=== PATIENT | male | born 1985 | race Caucasian/White ===

== ENCOUNTER 2016-09-07 15:33 | Emergency (ER) | payer SELFPAY ==
--- NOTE | 2016-09-07 18:54 | ED CLINICAL REPORT ---
Clinical Report - Physicians/Mid Levels [facility] [address] [place] [address] 09/07/2016 15:35 Patient: RACHELL IBRAHIM Time Seen: 18:08. Arrived- By private vehicle. HISTORY OF PRESENT ILLNESS Chief Complaint: TENDER AREA. This started about 5 days ago. Much worse today and is still present (worse). It was gradual in onset. It is described as painful. It has been located in the left axilla. Similar symptoms previously: None. REVIEW OF SYSTEMS No fever, chills, cough, difficulty breathing or chest pain. PAST HISTORY PCP: None Ops: None. SOCIAL HISTORY Alcohol use; consumes beer occasionally. ADDITIONAL NOTES The nursing notes have been reviewed. PHYSICAL EXAM Vital Signs: 09/07/2016 19:04 BP: 148/70. HR: 65. RR: 20. O2 saturation: 97%. Temp: 98.1 F. Pain level now: 02/13. 09/07/2016 17:59 BP: 140/73. HR: 76. RR: 12. O2 saturation: 100%. 09/07/2016 17:57 BP: 145/70. HR: 88. RR: 12. O2 saturation: 100%. 09/07/2016 16:01 BP: 155/102. HR: 72. RR: 18. O2 saturation: 99%. Temp: 98.2 F. Appearance: Alert. Patient in mild distress. Respiratory: No respiratory distress. Breath sounds normal. Abdomen: Nontender. Skin: Single medium abscess with fluctuance and pointing to left axilla. PROGRESS AND PROCEDURES Incision & Drainage of Abscess: The abscess is located in the left axilla. The risks of the procedure, benefits and alternatives were explained. Consent was obtained. Local anesthesia provided using 1% lidocaine with epi. Skin cleansed with Betadine. The abscess was incised with a #11 surgical blade. A moderate amount of pus was drained. Cavity was irrigated with saline and packed with gauze. A dressing was applied. Estimated blood loss: 0.2 mL. Disposition: Discharged. Condition: stable. CLINICAL IMPRESSION Single deep abscess to the left axilla. INSTRUCTIONS (REPACK WOUND IN 2 DAYS MAY RETURN TO ED FOR WOUND CARE IF NO PCP). Prescription Medications: Hydrocodone/APAP take 1-2 orally every 4 hours as needed for pain. Dispense fifteen (15). No refill. Bactrim DS 800 mg / 160 mg: Take 1 tablet orally every 12 hours for 7 days. Dispense fourteen (14). No refills. Substitution is permissible. Understanding of the discharge instructions verbalized by patient. Follow-up with: Zaida Tabor MD, [facility], , [facility], [address] [place] [address] Follow up in two days for packing removal. (Electronically signed by Arnaldo Samaniego MD 09/08/2016 19:37)
--- NOTE | 2016-09-07 18:54 | ED NURSING NOTES ---
Clinical Report - Nurses [facility] [address] [place] [address] 09/07/2016 15:35 Patient: RACHELL IBRAHIM TRIAGE Triage time 16:Sep 07 2016. Acuity: LEVEL 4. Chief Complaint: BOIL and TENDER AREA. Alert. No acute distress. --16:05 Pily Larson R.N. 16:01 09/07/16. BP: 155/102. HR: 72. RR: 18. O2 saturation: 99%. Temp: 98.2 F. --16:05 Pily Larson R.N. 16:05 09/07/16. Pain level now 10/10. --16:05 Pily Larson R.N. Acuity: LEVEL 4. --17:56 Dayron Wright R.N. Weight: 136 kg stated. Height/Length: 74 inches Per Patient. BMI: 38.5. --16:00 Pily Larson R.N. Medications None. --16:03 Pily Larson R.N. Medication/allergy information source: the patient. --16:05 Pily Larson R.N. Allergies None. --16:03 Pily Larson R.N. History Arrived by private vehicle. Historian: patient. Accompanied by family and spouse. Primary physician (none). ( 5-6 days ago, pimple in the left armpit, popped and now infected, red and hot. Big bump inside the skin.). Reported as located in the left axilla. Onset. (5 days ago). 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 PAST MEDICAL HX: Immunizations: status is unknown. SURGERY HX: No history of previous surgery. SOCIAL HX: Smoker- current status unknown (cigarette). Occasional alcohol use. History of drug use: marijuana. FALL RISK ASSESSMENT: Fall risk assessment completed. No fall risk identified. NUTRITIONAL RISK ASSESSMENT: The nutritional risk assessment revealed no deficiencies. FUNCTIONAL ASSESSMENT: Functional assessment: no impairments noted. LEARNING NEEDS ASSESSMENT: The learning needs assessment revealed no barriers. SKIN INTEGRITY ASSESSMENT: Skin integrity risk assessment completed. No skin integrity risk identified. --16:05 Pily Larson R.N. Interventions ID band on patient. To room. --16:05 Pily Larson R.N. PHYSICAL ASSESSMENT 17:56 09/07/16. GENERAL / NEURO / PSYCH: Alert. Oriented X 4. RESPIRATORY: Respirations not labored. CVS: Capillary refill less than 2 seconds. SKIN: Skin is warm and dry. Tenderness present in the left axilla. --17:56 Dayron Wright R.N. NURSING PROGRESS NOTES Patient ready for evaluation- ED physician notified. --16:05 Pily Larson R.N. 17:56 09/07/16. The plan of care for this patient has been created. Patient gowned. Head of bed elevated. Reassurance given. Two patient identifiers checked. Call light placed in reach. Side rails up x 2. Bed placed in lowest position. Brakes of bed on. Brakes of chair on. --17:56 Dayron Wright R.N. 17:57 09/07/16. --17:57 Dayron Wright R.N. 17:57 09/07/16. BP: 145/70. HR: 88. RR: 12. O2 saturation: 100% on room air. --17:57 Dayron Wright R.N. 17:59 09/07/16. --17:59 Dayron Wright R.N. 17:59 09/07/16. BP: 140/73. HR: 76. RR: 12. O2 saturation: 100% on room air. --17:59 Dayron Wright R.N. 18:52 09/07/2016 Bactrim DS (Sulfamethoxazole-TMP DS) PO 1 tab given. Allergies verified and confirmed 5 rights. --18:52 Dayron Wright R.N. 18:53 09/07/16. ( I and D completed by ). --18:53 Dayron Wright R.N. 18:58 09/07/2016 Percocet (Oxycodone-Acetaminophen) PO 5/325 mg Tablets 1 tab given. Allergies verified, confirmed 5 rights and sedative warning given to the patient. --19:03 Alicia Meyer Applied bulky dressing consisting of 4x4 gauze. Secured with rosamaria bandage. --19:07 Anatoly Orozco. DISPOSITION / DISCHARGE 19:04 09/07/16. Condition at departure: stable. No learning barriers present. Discharge instructions provided and reviewed with the patient and spouse. Reviewed medication(s) side effects, precautions, dosing and course information. Prescription(s) given to the patient. Reviewed wound care and skin care instructions. Patient and spouse verbalized understanding. Written instructions provided in Moldovan. The patient was discharged by the physician. He was discharged home and accompanied by spouse. He left the Emergency Department ambulatory and via private vehicle. Spouse driving. --19:05 Alicia Meyer 19:04 09/07/16. BP: 148/70. HR: 65. RR: 20. O2 saturation: 97% on room air. Temp: 98.1 F (oral). Pain level now: 02/13. --19:05 Alicia Meyer. Locked/Released at 09/08/2016 2:16 by Alicia Meyer,
--- NOTE | 2016-09-07 18:54 | ED ORDER SUMMARY ---
..... Patient: RACHELL IBRAHIM OrderSheet [facility] VisitID: [id number] [place] [address] 31y, M Registration Date/Time: 09/07/2016 ORDER SHEET Weight: 136.0 kg (stated) Allergies: None GENERAL ORDERS: MEDICATION ORDERS: Bactrim DS PO (Tablet 800-160 mg) 1 tab (NOW) (18:49 09/07/2016 Ej HURT) (Ack 18:51 JBoardley R.N.) (18:52 JBoardley R.N.) Percocet PO 1 tab (NOW) (18:55 09/07/2016 Ej HURT) (Ack 18:55 HSoule) (19:03 HSoule) IV FLUIDS: ORDER SHEET NOTES: [Electronically signed by Alicia Meyer (02:16 09/08/2016)] [Electronically signed by Arnaldo Samaniego MD (19:37 09/08/2016)] [Electronically locked/signed by Alicia Meyer (02:16 09/08/2016)]
--- NOTE | 2016-09-07 18:54 | ED CLINICAL REPORT ---
Clinical Report - Physicians/Mid Levels [facility] [address] [place] [address] 09/07/2016 15:35 Patient: RACHELL IBRAHIM Time Seen: 18:08. Arrived- By private vehicle. HISTORY OF PRESENT ILLNESS Chief Complaint: TENDER AREA. This started about 5 days ago. Much worse today and is still present (worse). It was gradual in onset. It is described as painful. It has been located in the left axilla. Similar symptoms previously: None. REVIEW OF SYSTEMS No fever, chills, cough, difficulty breathing or chest pain. PAST HISTORY PCP: None Ops: None. SOCIAL HISTORY Alcohol use; consumes beer occasionally. ADDITIONAL NOTES The nursing notes have been reviewed. PHYSICAL EXAM Vital Signs: 09/07/2016 19:04 BP: 148/70. HR: 65. RR: 20. O2 saturation: 97%. Temp: 98.1 F. Pain level now: 02/13. 09/07/2016 17:59 BP: 140/73. HR: 76. RR: 12. O2 saturation: 100%. 09/07/2016 17:57 BP: 145/70. HR: 88. RR: 12. O2 saturation: 100%. 09/07/2016 16:01 BP: 155/102. HR: 72. RR: 18. O2 saturation: 99%. Temp: 98.2 F. Appearance: Alert. Patient in mild distress. Respiratory: No respiratory distress. Breath sounds normal. Abdomen: Nontender. Skin: Single medium abscess with fluctuance and pointing to left axilla. PROGRESS AND PROCEDURES Incision & Drainage of Abscess: The abscess is located in the left axilla. The risks of the procedure, benefits and alternatives were explained. Consent was obtained. Local anesthesia provided using 1% lidocaine with epi. Skin cleansed with Betadine. The abscess was incised with a #11 surgical blade. A moderate amount of pus was drained. Cavity was irrigated with saline and packed with gauze. A dressing was applied. Estimated blood loss: 0.2 mL. Disposition: Discharged. Condition: stable. CLINICAL IMPRESSION Single deep abscess to the left axilla. INSTRUCTIONS (REPACK WOUND IN 2 DAYS MAY RETURN TO ED FOR WOUND CARE IF NO PCP). Prescription Medications: Hydrocodone/APAP take 1-2 orally every 4 hours as needed for pain. Dispense fifteen (15). No refill. Bactrim DS 800 mg / 160 mg: Take 1 tablet orally every 12 hours for 7 days. Dispense fourteen (14). No refills. Substitution is permissible. Understanding of the discharge instructions verbalized by patient. Follow-up with: Zaida Tabor MD, [facility], , [facility], [address] [place] [address] Follow up in two days for packing removal. (Electronically signed by Arnaldo Samaniego MD 09/08/2016 19:37)
--- NOTE | 2016-09-07 18:54 | ED ORDER SUMMARY ---
..... Patient: RACHELL IBRAHIM OrderSheet [facility] VisitID: [id number] [place] [address] 31y, M Registration Date/Time: 09/07/2016 ORDER SHEET Weight: 136.0 kg (stated) Allergies: None GENERAL ORDERS: MEDICATION ORDERS: Bactrim DS PO (Tablet 800-160 mg) 1 tab (NOW) (18:49 09/07/2016 Ej HURT) (Ack 18:51 JBoardley R.N.) (18:52 JBoardley R.N.) Percocet PO 1 tab (NOW) (18:55 09/07/2016 Ej HURT) (Ack 18:55 HSoule) (19:03 HSoule) IV FLUIDS: ORDER SHEET NOTES: [Electronically signed by Alicia Meyer (02:16 09/08/2016)] [Electronically signed by Arnaldo Samaniego MD (19:37 09/08/2016)] [Electronically locked/signed by Alicia Meyer (02:16 09/08/2016)]
--- NOTE | 2016-09-07 18:54 | ED NURSING NOTES ---
Clinical Report - Nurses [facility] [address] [place] [address] 09/07/2016 15:35 Patient: RACHELL IBRAHIM TRIAGE Triage time 16:Sep 07 2016. Acuity: LEVEL 4. Chief Complaint: BOIL and TENDER AREA. Alert. No acute distress. --16:05 Pily Larson R.N. 16:01 09/07/16. BP: 155/102. HR: 72. RR: 18. O2 saturation: 99%. Temp: 98.2 F. --16:05 Pily Larson R.N. 16:05 09/07/16. Pain level now 10/10. --16:05 Pily Larson R.N. Acuity: LEVEL 4. --17:56 Dayron Wright R.N. Weight: 136 kg stated. Height/Length: 74 inches Per Patient. BMI: 38.5. --16:00 Pily Larson R.N. Medications None. --16:03 Pily Larson R.N. Medication/allergy information source: the patient. --16:05 Pily Larson R.N. Allergies None. --16:03 Pily Larson R.N. History Arrived by private vehicle. Historian: patient. Accompanied by family and spouse. Primary physician (none). ( 5-6 days ago, pimple in the left armpit, popped and now infected, red and hot. Big bump inside the skin.). Reported as located in the left axilla. Onset. (5 days ago). 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 PAST MEDICAL HX: Immunizations: status is unknown. SURGERY HX: No history of previous surgery. SOCIAL HX: Smoker- current status unknown (cigarette). Occasional alcohol use. History of drug use: marijuana. FALL RISK ASSESSMENT: Fall risk assessment completed. No fall risk identified. NUTRITIONAL RISK ASSESSMENT: The nutritional risk assessment revealed no deficiencies. FUNCTIONAL ASSESSMENT: Functional assessment: no impairments noted. LEARNING NEEDS ASSESSMENT: The learning needs assessment revealed no barriers. SKIN INTEGRITY ASSESSMENT: Skin integrity risk assessment completed. No skin integrity risk identified. --16:05 Pily Larson R.N. Interventions ID band on patient. To room. --16:05 Pily Larson R.N. PHYSICAL ASSESSMENT 17:56 09/07/16. GENERAL / NEURO / PSYCH: Alert. Oriented X 4. RESPIRATORY: Respirations not labored. CVS: Capillary refill less than 2 seconds. SKIN: Skin is warm and dry. Tenderness present in the left axilla. --17:56 Dayron Wright R.N. NURSING PROGRESS NOTES Patient ready for evaluation- ED physician notified. --16:05 Pily Larson R.N. 17:56 09/07/16. The plan of care for this patient has been created. Patient gowned. Head of bed elevated. Reassurance given. Two patient identifiers checked. Call light placed in reach. Side rails up x 2. Bed placed in lowest position. Brakes of bed on. Brakes of chair on. --17:56 Dayron Wright R.N. 17:57 09/07/16. --17:57 Dayron Wright R.N. 17:57 09/07/16. BP: 145/70. HR: 88. RR: 12. O2 saturation: 100% on room air. --17:57 Dayron Wright R.N. 17:59 09/07/16. --17:59 Dayron Wright R.N. 17:59 09/07/16. BP: 140/73. HR: 76. RR: 12. O2 saturation: 100% on room air. --17:59 Dayron Wright R.N. 18:52 09/07/2016 Bactrim DS (Sulfamethoxazole-TMP DS) PO 1 tab given. Allergies verified and confirmed 5 rights. --18:52 Dayron Wright R.N. 18:53 09/07/16. ( I and D completed by ). --18:53 Dayron Wright R.N. 18:58 09/07/2016 Percocet (Oxycodone-Acetaminophen) PO 5/325 mg Tablets 1 tab given. Allergies verified, confirmed 5 rights and sedative warning given to the patient. --19:03 Alicia Meyer Applied bulky dressing consisting of 4x4 gauze. Secured with rosamaria bandage. --19:07 Anatoly Orozco. DISPOSITION / DISCHARGE 19:04 09/07/16. Condition at departure: stable. No learning barriers present. Discharge instructions provided and reviewed with the patient and spouse. Reviewed medication(s) side effects, precautions, dosing and course information. Prescription(s) given to the patient. Reviewed wound care and skin care instructions. Patient and spouse verbalized understanding. Written instructions provided in Turkish. The patient was discharged by the physician. He was discharged home and accompanied by spouse. He left the Emergency Department ambulatory and via private vehicle. Spouse driving. --19:05 Alicia Meyer 19:04 09/07/16. BP: 148/70. HR: 65. RR: 20. O2 saturation: 97% on room air. Temp: 98.1 F (oral). Pain level now: 02/13. --19:05 Alicia Meyer. Locked/Released at 09/08/2016 2:16 by Alicia Meyer,
--- NOTE | 2016-09-08 19:37 | ED MAR SUMMARY ---
..... Medication Administration Record [facility] [address] [place] [address] Patient: RACHELL IBRAHIM Visit ID: [id number] 31y, M Weight: 136.0 kg Height/Length: 74 in BMI: 38.5 ALLERGIES: None Given 18:52 09/07/2016 Dayron Wright R.N. Medication Administered: BACTRIM DS [PO] (SULFAMETHOXAZOLE-TMP DS), Dose: 1 tab PO. Medication Ordered: Bactrim DS PO (Tablet 800-160 mg) 1 tab (NOW). Given 18:58 09/07/2016 Alicia Meyer, Medication Administered: PERCOCET [PO] (OXYCODONE-ACETAMINOPHEN), Dose: 1 tab 5/325 mg Tablets PO. Medication Ordered: Percocet PO 1 tab (NOW).
--- NOTE | 2016-09-08 19:37 | ED DISCHARGE INSTRUCTIONS ---
Patient: RACHELL IBRAHIM General Instructions [facility] VisitID: [id number] [place] [address] 31y, M Registration Date/Time: 09/07/2016 Single deep abscess to the left axilla. INSTRUCTIONS (REPACK WOUND IN 2 DAYS MAY RETURN TO ED FOR WOUND CARE IF NO PCP). Prescription Medications: Hydrocodone/APAP take 1-2 orally every 4 hours as needed for pain. Dispense fifteen (15). No refill. Bactrim DS 800 mg / 160 mg: Take 1 tablet orally every 12 hours for 7 days. Dispense fourteen (14). No refills. Substitution is permissible. Understanding of the discharge instructions verbalized by patient. Follow-up with: Zaida Tabor MD, [facility], , [facility], [address] [place] [address] Follow up in two days for packing removal. ADDITIONAL INFORMATION Abscess [Incision & Drainage] An abscess (sometimes called a boil) occurs when bacteria get trapped under the skin and begin to grow. Pus forms inside the abscess as the body responds to the bacteria. An abscess can occur with an insect bite, ingrown hair, blocked oil gland, pimple, cyst, or puncture wound. Treatment of your abscess has required an incision to drain the pus. If the abscess pocket was large, a gauze packing may have been inserted. This will need to be removed and possibly replaced on your next visit. Antibiotics are not required in the treatment of a simple abscess, unless the infection is spreading into the skin around the wound (known as cellulitis). Healing of the wound will take about one to two weeks depending on the size of the abscess. Healthy tissue will grow from the bottom and sides of the opening until it seals over. Home Care: The wound may drain for the first two days. Cover the wound with a clean dry dressing. If the dressing becomes soaked with blood or pus, change it. If a gauze packing was placed inside the abscess cavity, you may be advised to remove it yourself. You may do this in the shower. Once the packing is removed, you should wash the area in the shower or bath 3 to 4 times a day, until the skin opening has closed. If you were prescribed antibiotics, take them as directed until they are all gone. You may use acetaminophen (Tylenol) or ibuprofen (Motrin, Advil) to control pain, unless another pain medicine was prescribed. [ NOTE: If you have liver disease or ever had a stomach ulcer, talk with your doctor before using these medicines.] Follow Up with your doctor as advised by our staff. If a gauze packing was inserted in your wound, it should be removed in 1-2 days. Check your wound every day for the signs of worsening infection listed below. Get Prompt Medical Attention if any of the following occur: Increasing redness or swelling Red streaks in the skin leading away from the wound Increasing local pain or swelling Continued pus draining from the wound two days after treatment Fever of 100.4F (38C) or higher, or as directed by your healthcare provider Hydrocodone Bitartrate, Acetaminophen Oral tablet What is this medicine? ACETAMINOPHEN; HYDROCODONE (a set a JENIFER margaux fen; radha droe KOE done) is a pain reliever. It is used to treat mild to moderate pain. How should I use this medicine? Take this medicine by mouth. Swallow it with a full glass of water. Follow the directions on the prescription label. If the medicine upsets your stomach, take the medicine with food or milk. Do not take more than you are told to take. Talk to your metal cut off saw operator regarding the use of this medicine in children. This medicine is not approved for use in children. What side effects may I notice from receiving this medicine? Side effects that you should report to your doctor or health critical care rn as soon as possible: allergic reactions like skin rash, itching or hives, swelling of the face, lips, or tongue breathing problems confusion feeling faint or lightheaded, falls stomach pain yellowing of the eyes or skin Side effects that usually do not require medical attention (report to your doctor or health critical care rn if they continue or are bothersome): nausea, vomiting stomach upset What may interact with this medicine? alcohol antihistamines isoniazid medicines for depression, anxiety, or psychotic disturbances medicines for sleep muscle relaxants naltrexone narcotic medicines (opiates) for pain phenobarbital ritonavir tramadol What if I miss a dose? If you miss a dose, take it as soon as you can. If it is almost time for your next dose, take only that dose. Do not take double or extra doses. Where should I keep my medicine? Keep out of the reach of children. This medicine can be abused. Keep your medicine in a safe place to protect it from theft. Do not share this medicine with anyone. Selling or giving away this medicine is dangerous and against the law. Store at room temperature between 15 and 30 degrees C (59 and 86 degrees F). Protect from light. Keep container tightly closed. Throw away any unused medicine after the expiration date. Discard unused medicine and used packaging carefully. Pets and children can be harmed if they find used or lost packages. What should I tell my health care provider before I take this medicine? They need to know if you have any of these conditions: brain tumor Crohn's disease, inflammatory bowel disease, or ulcerative colitis drink more than 3 alcohol-containing drinks per day drug abuse or addiction head injury heart or circulation problems kidney disease or problems going to the bathroom liver disease lung disease, asthma, or breathing problems an unusual or allergic reaction to acetaminophen, hydrocodone, other opioid analgesics, other medicines, foods, dyes, or preservatives or trying to get breast-feeding What should I watch for while using this medicine? Tell your doctor or health critical care rn if your pain does not go away, if it gets worse, or if you have new or a different type of pain. You may develop tolerance to the medicine. Tolerance means that you will need a higher dose of the medicine for pain relief. Tolerance is normal and is expected if you take the medicine for a long time. Do not suddenly stop taking your medicine because you may develop a severe reaction. Your body becomes used to the medicine. This does NOT mean you are addicted. Addiction is a behavior related to getting and using a drug for a non-medical reason. If you have pain, you have a medical reason to take pain medicine. Your doctor will tell you how much medicine to take. If your doctor wants you to stop the medicine, the dose will be slowly lowered over time to avoid any side effects. You may get drowsy or dizzy when you first start taking the medicine or change doses. Do not drive, use machinery, or do anything that may be dangerous until you know how the medicine affects you. Stand or sit up slowly. There are different types of narcotic medicines (opiates) for pain. If you take more than one type at the same time, you may have more side effects. Give your health care provider a list of all medicines you use. Your doctor will tell you how much medicine to take. Do not take more medicine than directed. Call emergency for help if you have problems breathing. The medicine will cause constipation. Try to have a bowel movement at least every 2 to 3 days. If you do not have a bowel movement for 3 days, call your doctor or health critical care rn. Too much acetaminophen can be very dangerous. Do not take Tylenol (acetaminophen) or medicines that contain acetaminophen with this medicine. Many non-prescription medicines contain acetaminophen. Always read the labels carefully. You have been given the following additional information: Abscess, Incision And Drainage Hydrocodone Bitartrate, Acetaminophen Oral tablet (Electronically signed by Arnaldo Samaniego MD 09/08/2016 19:37)
--- NOTE | 2016-09-08 19:37 | ED DISCHARGE INSTRUCTIONS ---
Patient: RACHELL IBRAHIM General Instructions Formerly [facility] VisitID: [id number] [place] [address] 31y, M Registration Date/Time: 09/07/2016 Single deep abscess to the left axilla. INSTRUCTIONS (REPACK WOUND IN 2 DAYS MAY RETURN TO ED FOR WOUND CARE IF NO PCP). Prescription Medications: Hydrocodone/APAP take 1-2 orally every 4 hours as needed for pain. Dispense fifteen (15). No refill. Bactrim DS 800 mg / 160 mg: Take 1 tablet orally every 12 hours for 7 days. Dispense fourteen (14). No refills. Substitution is permissible. Understanding of the discharge instructions verbalized by patient. Follow-up with: Zaida Tabor MD, [facility], , [facility], [address] [place] [address] Follow up in two days for packing removal. ADDITIONAL INFORMATION Abscess [Incision & Drainage] An abscess (sometimes called a boil) occurs when bacteria get trapped under the skin and begin to grow. Pus forms inside the abscess as the body responds to the bacteria. An abscess can occur with an insect bite, ingrown hair, blocked oil gland, pimple, cyst, or puncture wound. Treatment of your abscess has required an incision to drain the pus. If the abscess pocket was large, a gauze packing may have been inserted. This will need to be removed and possibly replaced on your next visit. Antibiotics are not required in the treatment of a simple abscess, unless the infection is spreading into the skin around the wound (known as cellulitis). Healing of the wound will take about one to two weeks depending on the size of the abscess. Healthy tissue will grow from the bottom and sides of the opening until it seals over. Home Care: The wound may drain for the first two days. Cover the wound with a clean dry dressing. If the dressing becomes soaked with blood or pus, change it. If a gauze packing was placed inside the abscess cavity, you may be advised to remove it yourself. You may do this in the shower. Once the packing is removed, you should wash the area in the shower or bath 3 to 4 times a day, until the skin opening has closed. If you were prescribed antibiotics, take them as directed until they are all gone. You may use acetaminophen (Tylenol) or ibuprofen (Motrin, Advil) to control pain, unless another pain medicine was prescribed. [ NOTE: If you have liver disease or ever had a stomach ulcer, talk with your doctor before using these medicines.] Follow Up with your doctor as advised by our staff. If a gauze packing was inserted in your wound, it should be removed in 1-2 days. Check your wound every day for the signs of worsening infection listed below. Get Prompt Medical Attention if any of the following occur: Increasing redness or swelling Red streaks in the skin leading away from the wound Increasing local pain or swelling Continued pus draining from the wound two days after treatment Fever of 100.4F (38C) or higher, or as directed by your healthcare provider Hydrocodone Bitartrate, Acetaminophen Oral tablet What is this medicine? ACETAMINOPHEN; HYDROCODONE (a set a JENIFER margaux fen; radha droe KOE done) is a pain reliever. It is used to treat mild to moderate pain. How should I use this medicine? Take this medicine by mouth. Swallow it with a full glass of water. Follow the directions on the prescription label. If the medicine upsets your stomach, take the medicine with food or milk. Do not take more than you are told to take. Talk to your automobile damage field appraiser regarding the use of this medicine in children. This medicine is not approved for use in children. What side effects may I notice from receiving this medicine? Side effects that you should report to your doctor or health associate director career services as soon as possible: allergic reactions like skin rash, itching or hives, swelling of the face, lips, or tongue breathing problems confusion feeling faint or lightheaded, falls stomach pain yellowing of the eyes or skin Side effects that usually do not require medical attention (report to your doctor or health associate director career services if they continue or are bothersome): nausea, vomiting stomach upset What may interact with this medicine? alcohol antihistamines isoniazid medicines for depression, anxiety, or psychotic disturbances medicines for sleep muscle relaxants naltrexone narcotic medicines (opiates) for pain phenobarbital ritonavir tramadol What if I miss a dose? If you miss a dose, take it as soon as you can. If it is almost time for your next dose, take only that dose. Do not take double or extra doses. Where should I keep my medicine? Keep out of the reach of children. This medicine can be abused. Keep your medicine in a safe place to protect it from theft. Do not share this medicine with anyone. Selling or giving away this medicine is dangerous and against the law. Store at room temperature between 15 and 30 degrees C (59 and 86 degrees F). Protect from light. Keep container tightly closed. Throw away any unused medicine after the expiration date. Discard unused medicine and used packaging carefully. Pets and children can be harmed if they find used or lost packages. What should I tell my health care provider before I take this medicine? They need to know if you have any of these conditions: brain tumor Crohn's disease, inflammatory bowel disease, or ulcerative colitis drink more than 3 alcohol-containing drinks per day drug abuse or addiction head injury heart or circulation problems kidney disease or problems going to the bathroom liver disease lung disease, asthma, or breathing problems an unusual or allergic reaction to acetaminophen, hydrocodone, other opioid analgesics, other medicines, foods, dyes, or preservatives or trying to get breast-feeding What should I watch for while using this medicine? Tell your doctor or health associate director career services if your pain does not go away, if it gets worse, or if you have new or a different type of pain. You may develop tolerance to the medicine. Tolerance means that you will need a higher dose of the medicine for pain relief. Tolerance is normal and is expected if you take the medicine for a long time. Do not suddenly stop taking your medicine because you may develop a severe reaction. Your body becomes used to the medicine. This does NOT mean you are addicted. Addiction is a behavior related to getting and using a drug for a non-medical reason. If you have pain, you have a medical reason to take pain medicine. Your doctor will tell you how much medicine to take. If your doctor wants you to stop the medicine, the dose will be slowly lowered over time to avoid any side effects. You may get drowsy or dizzy when you first start taking the medicine or change doses. Do not drive, use machinery, or do anything that may be dangerous until you know how the medicine affects you. Stand or sit up slowly. There are different types of narcotic medicines (opiates) for pain. If you take more than one type at the same time, you may have more side effects. Give your health care provider a list of all medicines you use. Your doctor will tell you how much medicine to take. Do not take more medicine than directed. Call emergency for help if you have problems breathing. The medicine will cause constipation. Try to have a bowel movement at least every 2 to 3 days. If you do not have a bowel movement for 3 days, call your doctor or health associate director career services. Too much acetaminophen can be very dangerous. Do not take Tylenol (acetaminophen) or medicines that contain acetaminophen with this medicine. Many non-prescription medicines contain acetaminophen. Always read the labels carefully. You have been given the following additional information: Abscess, Incision And Drainage Hydrocodone Bitartrate, Acetaminophen Oral tablet (Electronically signed by Arnaldo Samaniego MD 09/08/2016 19:37)
--- NOTE | 2016-09-08 19:37 | ED MED RECONCILIATION SUMMARY ---
Patient: RACHELL IBRAHIM Medication Reconciliation Report [facility] VisitID: [id number] [address] [place] [address] 31y, M Registration Date/Time: 09/07/2016 Weight: 136.0 kg Height/Length: 74 in. BMI: 38.5 ALLERGIES: None The patient's Home Medications are listed below: NONE. The source(s) of the original Home Medication information: patient The following Medications were given to the patient in the Emergency Department: Bactrim DS [PO] PO 1 tab, administered: 09/07/2016 6:52:00 PM Percocet [PO] PO 1 tab, administered: 09/07/2016 6:58:00 PM The following Medications were prescribed to the patient: Hydrocodone/APAP take 1-2 orally every 4 hours as needed for pain. Dispense fifteen (15). No refill. -- Arnaldo Samaniego MD Bactrim DS 800 mg / 160 mg: Take 1 tablet orally every 12 hours for 7 days. Dispense fourteen (14). No refills. Substitution is permissible. -- Arnaldo Samaniego MD
--- NOTE | 2016-09-08 19:37 | ED MED RECONCILIATION SUMMARY ---
Patient: RACHELL IBRAHIM Medication Reconciliation Report [facility] VisitID: [id number] [address] [place] [address] 31y, M Registration Date/Time: 09/07/2016 Weight: 136.0 kg Height/Length: 74 in. BMI: 38.5 ALLERGIES: None The patient's Home Medications are listed below: NONE. The source(s) of the original Home Medication information: patient The following Medications were given to the patient in the Emergency Department: Bactrim DS [PO] PO 1 tab, administered: 09/07/2016 6:52:00 PM Percocet [PO] PO 1 tab, administered: 09/07/2016 6:58:00 PM The following Medications were prescribed to the patient: Hydrocodone/APAP take 1-2 orally every 4 hours as needed for pain. Dispense fifteen (15). No refill. -- Arnaldo Samaniego MD Bactrim DS 800 mg / 160 mg: Take 1 tablet orally every 12 hours for 7 days. Dispense fourteen (14). No refills. Substitution is permissible. -- Arnaldo Samaniego MD
--- NOTE | 2016-09-08 19:37 | ED MAR SUMMARY ---
..... Medication Administration Record [facility] [address] [place] [address] Patient: RACHELL IBRAHIM Visit ID: [id number] 31y, M Weight: 136.0 kg Height/Length: 74 in BMI: 38.5 ALLERGIES: None Given 18:52 09/07/2016 Dayron Wright R.N. Medication Administered: BACTRIM DS [PO] (SULFAMETHOXAZOLE-TMP DS), Dose: 1 tab PO. Medication Ordered: Bactrim DS PO (Tablet 800-160 mg) 1 tab (NOW). Given 18:58 09/07/2016 Alicia Meyer, Medication Administered: PERCOCET [PO] (OXYCODONE-ACETAMINOPHEN), Dose: 1 tab 5/325 mg Tablets PO. Medication Ordered: Percocet PO 1 tab (NOW).
== END 2016-09-07 19:00 | disposition home or self-care (01) ==
LOC: ED SRH 15:33
DX: L02.412 Cutaneous abscess of left axilla (principal)

== ENCOUNTER 2016-09-09 17:53 | Emergency (ER) | payer SELFPAY ==
--- NOTE | 2016-09-09 19:23 | ED NURSING NOTES ---
Clinical Report - Nurses [facility] [address] [place] [address] 09/09/2016 17:53 [id number] Triage time 18:40 Sep 09 2016. Acuity: LEVEL 4. Chief Complaint: ((L) Axilla wound check and dressing change). Alert. FAIZA COMA SCORE: [place] Coma Scale: 15- eyes open spontaneously (4); best verbal response- oriented x 4 (5); best motor response- obeys commands (6). --18:52 Tk Wang R.N. 18:40 09/09/16. BP: 143/73. HR: 60. RR: 16. O2 saturation: 98% on room air. Temp: 98.5 F (oral). Pain level now: 0/10. --18:52 Tk Wang R.N. Weight: 136 kg stated. Height/Length: 64 inches Per Patient. BMI: 51.5. --18:49 Tk Wang R.N. Medications Bactrim DS Oral 1 tablet, 2x a day. --18:47 Tk Wang R.N. Vicodin Oral 5 mg, PRN. --18:48 Tk Wang R.N. Allergies No Known Drug Allergy. --18:49 Tk Wang R.N. History Arrived by private vehicle. Historian: patient. Accompanied by spouse. Primary physician (none). ( Wound check and dressing change (L) Axilla). Onset. (about 7 days ago). 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 PAST MEDICAL HX: Negative. Immunizations: status is unknown. SURGERY HX: No history of previous surgery. SOCIAL HX: Heavy tobacco smoker (cigarette)- 1 pack per day. History of drug use: marijuana. No alcohol use. No infectious disease exposure. ABUSE ASSESSMENT: No report of abuse. FALL RISK ASSESSMENT: Fall risk assessment completed. No fall risk identified. NUTRITIONAL RISK ASSESSMENT: The nutritional risk assessment revealed no deficiencies. FUNCTIONAL ASSESSMENT: Functional assessment: no impairments noted. LEARNING NEEDS ASSESSMENT: The learning needs assessment revealed no barriers. SKIN INTEGRITY ASSESSMENT: Skin integrity risk assessment completed. No skin integrity risk identified. --18:52 Tk Wang R.N. PROBLEMS: Abscess. --18:51 Tk Wang R.N. Interventions ID band on patient. To treatment room. --18:52 Tk Wang R.N. PHYSICAL ASSESSMENT Ambulatory to room. GENERAL / NEURO / PSYCH: Alert. Oriented X 4. HEENT: No facial asymmetry noted. Mucous membranes are pink. RESPIRATORY: Respirations not labored. Chest nontender. CVS: Cardiac rhythm: (RRR). Capillary refill less than 2 seconds. Pulses within normal limits. GI / : Abdomen soft and nontender and normal bowel sounds. SKIN: Skin is warm and dry. Normal skin turgor. ( I+D site (L) axilla). --18:54 Tk Wang R.N. NURSING PROGRESS NOTES Patient gowned. Reassurance given to the patient. Patient identifiers checked. Call light placed in reach. Side rails up x 1. Bed placed in lowest position. Brakes of bed on. Patient ready for evaluation- chart flagged and ED physician notified. --18:54 Tk Wang R.N. 19:24. Applied dressing consisting of 4x4 gauze. Secured with tape. --19:29 McQuoid, Saba, ER Tech1. DISPOSITION / DISCHARGE Condition at departure: improved. No learning barriers present. Discharge instructions provided and reviewed. Reviewed wound care instructions. Patient verbalized understanding. Written instructions provided in French. The patient was discharged by the physician. He was discharged home and accompanied by spouse. He left the Emergency Department ambulatory and via private vehicle. Spouse driving. FALL RISK ASSESSMENT: Fall risk assessment completed. No fall risk identified. --19:47 Alicia Meyer 19:44 09/09/16. BP: 140/70. HR: 62. O2 saturation: 98% on room air. Temp: 98.1 F (oral). Pain level now: 0/10. --19:47 Alicia Meyer. Locked/Released at 09/09/2016 19:49 by Alicia Meyer,
--- NOTE | 2016-09-09 19:23 | ED NURSING NOTES ---
Clinical Report - Nurses [facility] [address] [place] [address] 09/09/2016 17:53 [id number] Triage time 18:40 Sep 09 2016. Acuity: LEVEL 4. Chief Complaint: ((L) Axilla wound check and dressing change). Alert. FAIZA COMA SCORE: [place] Coma Scale: 15- eyes open spontaneously (4); best verbal response- oriented x 4 (5); best motor response- obeys commands (6). --18:52 Tk Wang R.N. 18:40 09/09/16. BP: 143/73. HR: 60. RR: 16. O2 saturation: 98% on room air. Temp: 98.5 F (oral). Pain level now: 0/10. --18:52 Tk Wang R.N. Weight: 136 kg stated. Height/Length: 64 inches Per Patient. BMI: 51.5. --18:49 Tk Wang R.N. Medications Bactrim DS Oral 1 tablet, 2x a day. --18:47 Tk Wang R.N. Vicodin Oral 5 mg, PRN. --18:48 Tk Wang R.N. Allergies No Known Drug Allergy. --18:49 Tk Wang R.N. History Arrived by private vehicle. Historian: patient. Accompanied by spouse. Primary physician (none). ( Wound check and dressing change (L) Axilla). Onset. (about 7 days ago). 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 PAST MEDICAL HX: Negative. Immunizations: status is unknown. SURGERY HX: No history of previous surgery. SOCIAL HX: Heavy tobacco smoker (cigarette)- 1 pack per day. History of drug use: marijuana. No alcohol use. No infectious disease exposure. ABUSE ASSESSMENT: No report of abuse. FALL RISK ASSESSMENT: Fall risk assessment completed. No fall risk identified. NUTRITIONAL RISK ASSESSMENT: The nutritional risk assessment revealed no deficiencies. FUNCTIONAL ASSESSMENT: Functional assessment: no impairments noted. LEARNING NEEDS ASSESSMENT: The learning needs assessment revealed no barriers. SKIN INTEGRITY ASSESSMENT: Skin integrity risk assessment completed. No skin integrity risk identified. --18:52 kT Wang R.N. PROBLEMS: Abscess. --18:51 Tk Wang R.N. Interventions ID band on patient. To treatment room. --18:52 Tk Wang R.N. PHYSICAL ASSESSMENT Ambulatory to room. GENERAL / NEURO / PSYCH: Alert. Oriented X 4. HEENT: No facial asymmetry noted. Mucous membranes are pink. RESPIRATORY: Respirations not labored. Chest nontender. CVS: Cardiac rhythm: (RRR). Capillary refill less than 2 seconds. Pulses within normal limits. GI / : Abdomen soft and nontender and normal bowel sounds. SKIN: Skin is warm and dry. Normal skin turgor. ( I+D site (L) axilla). --18:54 Tk Wang R.N. NURSING PROGRESS NOTES Patient gowned. Reassurance given to the patient. Patient identifiers checked. Call light placed in reach. Side rails up x 1. Bed placed in lowest position. Brakes of bed on. Patient ready for evaluation- chart flagged and ED physician notified. --18:54 Tk Wang R.N. 19:24. Applied dressing consisting of 4x4 gauze. Secured with tape. --19:29 McQuoid, Saba, ER Tech1. DISPOSITION / DISCHARGE Condition at departure: improved. No learning barriers present. Discharge instructions provided and reviewed. Reviewed wound care instructions. Patient verbalized understanding. Written instructions provided in Yoruba. The patient was discharged by the physician. He was discharged home and accompanied by spouse. He left the Emergency Department ambulatory and via private vehicle. Spouse driving. FALL RISK ASSESSMENT: Fall risk assessment completed. No fall risk identified. --19:47 Alicia Meyer 19:44 09/09/16. BP: 140/70. HR: 62. O2 saturation: 98% on room air. Temp: 98.1 F (oral). Pain level now: 0/10. --19:47 Alicia Meyer. Locked/Released at 09/09/2016 19:49 by Alicia Meyer,
--- NOTE | 2016-09-09 19:23 | ED CLINICAL REPORT ---
Clinical Report - Physicians/Mid Levels [facility] [address] [place] [address] 09/09/2016 17:53 Patient: RACHELL IBRAHIM Time Seen: 18:43; initial patient contact, initial documentation, patient care assumed. Arrived- By private vehicle. Historian- patient. HISTORY OF PRESENT ILLNESS Treated in emergency department two days ago. Chief Complaint: ABSCESS RECHECK. The patient has no complaints since the procedure was performed. Previous emergency department treatment: Incision and Drainage of abscess and prescription antibiotic given and given and filled for pain med. Patient taking as prescribed. Prescription antibiotic- Bactrim. REVIEW OF SYSTEMS All systems otherwise negative, except as recorded above. PAST HISTORY See nurses notes. PROBLEMS: Abscess. --18:51 Tk Wang R.N. SOCIAL HISTORY Heavy tobacco smoker. History of occasional drug use: marijuana. No alcohol use. No recent travel. Is a local resident. FAMILY HISTORY No significant family medical history. ADDITIONAL NOTES The nursing notes have been reviewed with agreement regarding the chief complaint, HPI, ROS, PMH and patient medications and allergies. PHYSICAL EXAM Vital Signs: 09/09/2016 18:40 BP: 143/73. HR: 60. RR: 16. O2 saturation: 98%. Temp: 98.5 F. Pain level now: 0/10. Have been reviewed as normal and appear to be correct. Appearance: Alert. Oriented X3. No acute distress. Head: Head non-tender. No swelling of head. Eyes: Pupils equal, round and reactive to light. EOM intact. ENT: No dental injury. Pharynx normal. Neck: Neck non-tender. Painless ROM. Skin: Healing cellulitis. Healing abscess. Extremities: Normal inspection. Extremities atraumatic. No lower extremity edema. Neuro, Vascular and Tendons: Sensation intact. No tendon injury. No vascular compromise. Neuro: Oriented X 3. No motor deficit. No sensory deficit. PROGRESS AND PROCEDURES Abscess Recheck: The abscess is located on the left axilla. Packing is present. Examination of abscess reveals normal healing and no infection or tenderness. ( and removed). Patient counseled in person regarding the patient's stable condition and diagnosis. 19:23. Differential Diagnosis: Other possible considerations: abscess recheck, non/healing wound. Above considerations are based on history and physical exam. Differential diagnosis was discussed with patient. Disposition: Discharged home in good and improved condition (19:23). Condition: good and stable. CLINICAL IMPRESSION Abscess check INSTRUCTIONS Warnings: GENERAL WARNINGS: Return or contact your physician immediately if your condition worsens or changes unexpectedly, if not improving as expected, or if other problems arise. Specifically return if problem worsens. Follow-up: Follow up with your doctor in about three days as needed and for wound check. Call for an appointment. Summary of care provided to patient. Understanding of the discharge instructions verbalized by patient. (Electronically signed by Loli Flores A.R.N.P. 09/09/2016 21:32)
--- NOTE | 2016-09-09 19:23 | ED CLINICAL REPORT ---
Clinical Report - Physicians/Mid Levels [facility] [address] [place] [address] 09/09/2016 17:53 Patient: RACHELL IBRAHIM Time Seen: 18:43; initial patient contact, initial documentation, patient care assumed. Arrived- By private vehicle. Historian- patient. HISTORY OF PRESENT ILLNESS Treated in emergency department two days ago. Chief Complaint: ABSCESS RECHECK. The patient has no complaints since the procedure was performed. Previous emergency department treatment: Incision and Drainage of abscess and prescription antibiotic given and given and filled for pain med. Patient taking as prescribed. Prescription antibiotic- Bactrim. REVIEW OF SYSTEMS All systems otherwise negative, except as recorded above. PAST HISTORY See nurses notes. PROBLEMS: Abscess. --18:51 Tk Wang R.N. SOCIAL HISTORY Heavy tobacco smoker. History of occasional drug use: marijuana. No alcohol use. No recent travel. Is a local resident. FAMILY HISTORY No significant family medical history. ADDITIONAL NOTES The nursing notes have been reviewed with agreement regarding the chief complaint, HPI, ROS, PMH and patient medications and allergies. PHYSICAL EXAM Vital Signs: 09/09/2016 18:40 BP: 143/73. HR: 60. RR: 16. O2 saturation: 98%. Temp: 98.5 F. Pain level now: 0/10. Have been reviewed as normal and appear to be correct. Appearance: Alert. Oriented X3. No acute distress. Head: Head non-tender. No swelling of head. Eyes: Pupils equal, round and reactive to light. EOM intact. ENT: No dental injury. Pharynx normal. Neck: Neck non-tender. Painless ROM. Skin: Healing cellulitis. Healing abscess. Extremities: Normal inspection. Extremities atraumatic. No lower extremity edema. Neuro, Vascular and Tendons: Sensation intact. No tendon injury. No vascular compromise. Neuro: Oriented X 3. No motor deficit. No sensory deficit. PROGRESS AND PROCEDURES Abscess Recheck: The abscess is located on the left axilla. Packing is present. Examination of abscess reveals normal healing and no infection or tenderness. ( and removed). Patient counseled in person regarding the patient's stable condition and diagnosis. 19:23. Differential Diagnosis: Other possible considerations: abscess recheck, non/healing wound. Above considerations are based on history and physical exam. Differential diagnosis was discussed with patient. Disposition: Discharged home in good and improved condition (19:23). Condition: good and stable. CLINICAL IMPRESSION Abscess check INSTRUCTIONS Warnings: GENERAL WARNINGS: Return or contact your physician immediately if your condition worsens or changes unexpectedly, if not improving as expected, or if other problems arise. Specifically return if problem worsens. Follow-up: Follow up with your doctor in about three days as needed and for wound check. Call for an appointment. Summary of care provided to patient. Understanding of the discharge instructions verbalized by patient. (Electronically signed by Loli Flores A.R.N.P. 09/09/2016 21:32)
--- NOTE | 2016-09-09 21:32 | ED DISCHARGE INSTRUCTIONS ---
Patient: RACHELL IBRAHIM General Instructions [facility] VisitID: [id number] [place] [address] 31y, M Registration Date/Time: 09/09/2016 Abscess check INSTRUCTIONS Warnings: GENERAL WARNINGS: Return or contact your physician immediately if your condition worsens or changes unexpectedly, if not improving as expected, or if other problems arise. Specifically return if problem worsens. Follow-up: Follow up with your doctor in about three days as needed and for wound check. Call for an appointment. Summary of care provided to patient. Understanding of the discharge instructions verbalized by patient. ADDITIONAL INFORMATION Abscess [Incision & Drainage] An abscess (sometimes called a boil) occurs when bacteria get trapped under the skin and begin to grow. Pus forms inside the abscess as the body responds to the bacteria. An abscess can occur with an insect bite, ingrown hair, blocked oil gland, pimple, cyst, or puncture wound. Treatment of your abscess has required an incision to drain the pus. If the abscess pocket was large, a gauze packing may have been inserted. This will need to be removed and possibly replaced on your next visit. Antibiotics are not required in the treatment of a simple abscess, unless the infection is spreading into the skin around the wound (known as cellulitis). Healing of the wound will take about one to two weeks depending on the size of the abscess. Healthy tissue will grow from the bottom and sides of the opening until it seals over. Home Care: The wound may drain for the first two days. Cover the wound with a clean dry dressing. If the dressing becomes soaked with blood or pus, change it. If a gauze packing was placed inside the abscess cavity, you may be advised to remove it yourself. You may do this in the shower. Once the packing is removed, you should wash the area in the shower or bath 3 to 4 times a day, until the skin opening has closed. If you were prescribed antibiotics, take them as directed until they are all gone. You may use acetaminophen (Tylenol) or ibuprofen (Motrin, Advil) to control pain, unless another pain medicine was prescribed. [ NOTE: If you have liver disease or ever had a stomach ulcer, talk with your doctor before using these medicines.] Follow Up with your doctor as advised by our staff. If a gauze packing was inserted in your wound, it should be removed in 1-2 days. Check your wound every day for the signs of worsening infection listed below. Get Prompt Medical Attention if any of the following occur: Increasing redness or swelling Red streaks in the skin leading away from the wound Increasing local pain or swelling Continued pus draining from the wound two days after treatment Fever of 100.4F (38C) or higher, or as directed by your healthcare provider Staph Infection (MRSA) "Staph" is the short name for the common bacteria called "staphylococcus aureus". Staph bacteria are often present on the skin without causing an infection. If it gets under the skin an infection occurs. This causes redness, tenderness, swelling and sometimes fluid drainage. MRSA stands for "Methicillin-Resistant Staph Aureus". Unlike a common staph infection, MRSA bacteria are resistant to the usual antibiotics and harder to treat. Also, MRSA is more toxic than common staph bacteria. It can spread quickly throughout the body and cause a life-threatening illness. MRSA is spread to others by direct physical contact with the bacteria. MRSA can also be transmitted from items contaminated by a person who has the bacteria, such as bandages, towels, bed sheets, or sports equipment. It is not spread through the air. Once you have a MRSA skin infection, you are at risk of having it recur in the future. If MRSA infection is suspected, the doctor may take a wound culture to confirm the diagnosis. Any abscess will be drained. One or sometimes two antibiotics that work against MRSA will be prescribed. Home Care: 1) Take any antibiotics prescribed exactly as directed until they are gone. 2) Follow the same washing procedures as outlined for Household Members below. 3) Keep draining wounds covered with clean, dry bandages. Change dressings as they become soiled. 4) You and those in contact with you should wash their hands frequently with soap and warm water or use an alcohol-based hand director of sports medicine. Do this after each time you change the bandage or touch the wound. 5) Avoid sharing personal items such as towels, washcloths, razors, clothing, or uniforms. Wash soiled sheets, towels or clothes in hot water with laundry detergent. Use an automatic clothes dryer set on high to kill any remaining bacteria. 6) Remove any artificial nails and nail albanian. 7) If you use a gym, wipe down equipment before and after each use. Treatment Of Household Members If you have been diagnosed with possible MRSA infection, those living with you are at higher risk of carrying the bacteria on their skin or in their nose, even if there is no sign of infection. Bacteria must be removed from the skin of all household members (including you) at the same time, so that it is not passed back and forth. Advise them to remove the bacteria as follows: Wash your whole body (scalp to toes) daily for five days with Hibiclens (chlorhexidine). Scrub fingernails with a brush for one minute twice a day. If any skin infections are present (boils, abscess, infected cut) these must be treated by a doctor. Washing alone will not treat a MRSA infection. Clean counter tops and children's toys; do not share personal items such as toothbrush and razors. It is okay to share glasses, plates, utensils. If antibiotic ointment was prescribed use it as directed. Follow Up with your doctor or as advised by our staff. If a wound culture was taken, call as directed in two days to obtain the results. If the culture result is positive for MRSA, tell medical personnel in the future that you were treated for this type of infection. Get Prompt Medical Attention if any of the following occur: -- Increasing redness, swelling or pain -- Red streaks in the skin around the wound -- Weakness or dizziness -- New appearance of pus or drainage from the wound -- New fever over 100.4 F (38.0 C) You have been given the following additional information: Abscess, Incision And Drainage MRSA Skin Infection, Suspected Or Confirmed (Electronically signed by Loli Flores A.R.N.P. 09/09/2016 21:32)
--- NOTE | 2016-09-09 21:32 | ED MAR SUMMARY ---
..... Medication Administration Record [facility] [address] [place], [place] [id number] Patient: RACHELL IBRAHIM Visit ID: [id number] 31y, M Weight: 136.0 kg Height/Length: 64 in BMI: 51.5 ALLERGIES: No Known Drug Allergy
--- NOTE | 2016-09-09 21:32 | ED MAR SUMMARY ---
..... Medication Administration Record [facility] [address] [place], [place] [id number] Patient: RACHELL IBRAHIM Visit ID: [id number] 31y, M Weight: 136.0 kg Height/Length: 64 in BMI: 51.5 ALLERGIES: No Known Drug Allergy
--- NOTE | 2016-09-09 21:33 | ED MED RECONCILIATION SUMMARY ---
Patient: RACHELL IBRAHIM Medication Reconciliation Report [facility] VisitID: [id number] [address] [place] [address] 31y, M Registration Date/Time: 09/09/2016 Weight: 136.0 kg Height/Length: 64 in. BMI: 51.5 ALLERGIES: No Known Drug Allergy The patient's Home Medications are listed below: THE FOLLOWING MEDICATIONS NEED TO BE RECONCILED: Bactrim DS Oral 1 tablet, 2x a day Vicodin Oral 5 mg, PRN The source(s) of the original Home Medication information: Not obtained. The following Medications were given to the patient in the Emergency Department: None. The following Medications were prescribed to the patient: None.
--- NOTE | 2016-09-09 21:33 | ED ORDER SUMMARY ---
..... Patient: RACHELL IBRAHIM OrderSheet [facility] VisitID: [id number] [address] [place] [address] 31y, M Registration Date/Time: 09/09/2016 ORDER SHEET Weight: 136.0 kg (stated) Allergies: No Known Drug Allergy GENERAL ORDERS: Dress Wounds (19:25 09/09/2016 Peter A.R.N.P.) (Ack 19:25 AMcQuoid ER Tech1) (19:28 AMcQuoid ER Tech1) MEDICATION ORDERS: IV FLUIDS: ORDER SHEET NOTES: [Electronically signed by Alicia Meyer (19:49 09/09/2016)] [Electronically signed by Loli Flores A.R.N.P. (21:32 09/09/2016)] [Electronically locked/signed by Alicia Meyer (19:49 09/09/2016)]
--- NOTE | 2016-09-09 21:33 | ED ORDER SUMMARY ---
..... Patient: RACHELL IBRAHIM OrderSheet [facility] VisitID: [id number] [address] [place] [address] 31y, M Registration Date/Time: 09/09/2016 ORDER SHEET Weight: 136.0 kg (stated) Allergies: No Known Drug Allergy GENERAL ORDERS: Dress Wounds (19:25 09/09/2016 Peter A.R.N.P.) (Ack 19:25 AMcQuoid ER Tech1) (19:28 AMcQuoid ER Tech1) MEDICATION ORDERS: IV FLUIDS: ORDER SHEET NOTES: [Electronically signed by Alicia Meyer (19:49 09/09/2016)] [Electronically signed by Loli Flores A.R.N.P. (21:32 09/09/2016)] [Electronically locked/signed by Alicia Meyer (19:49 09/09/2016)]
--- NOTE | 2016-09-09 21:33 | ED MED RECONCILIATION SUMMARY ---
Patient: RACHELL IBRAHIM Medication Reconciliation Report [facility] VisitID: [id number] [address] [place] [address] 31y, M Registration Date/Time: 09/09/2016 Weight: 136.0 kg Height/Length: 64 in. BMI: 51.5 ALLERGIES: No Known Drug Allergy The patient's Home Medications are listed below: THE FOLLOWING MEDICATIONS NEED TO BE RECONCILED: Bactrim DS Oral 1 tablet, 2x a day Vicodin Oral 5 mg, PRN The source(s) of the original Home Medication information: Not obtained. The following Medications were given to the patient in the Emergency Department: None. The following Medications were prescribed to the patient: None.
== END 2016-09-09 19:45 | disposition home or self-care (01) ==
LOC: ED SRH 17:53
DX: L02.412 Cutaneous abscess of left axilla (principal); F17.210 Nicotine dependence, cigarettes, uncomplicated